=== PATIENT | male | born 1995 | race Caucasian/White ===

== ENCOUNTER 2022-01-20 04:36 | Day surgery (SDC) | payer OTHER ==
[2022-01-17 08:55] VITALS: BMI 32.1
[2022-01-20] MEDS ORDERED: MIDAZOLAM HCL 2 MG/2 ML SINGLE DOSE VIAL ONE (12:00)
[2022-01-20] MEDS ORDERED: PROPOFOL 20 ML ONE ×2 (12:00→12:09)
[2022-01-20] MEDS ORDERED: ePHEDrine SULFATE 50 MG/1 ML AMPULE ONE (12:02)
[2022-01-20] MEDS ORDERED: IOHEXOL 300 MG/ML INFUS..BTL IJ ONE (12:39)
[2022-01-20] MEDS ORDERED: oxyCODONE HCL 5 MG TABLET PO PRN ×2 (13:09)
[2022-01-20] MEDS ORDERED: ONDANSETRON 4 MG/2 ML VIAL IVPUSH PRN (13:09)
[2022-01-20] MEDS ORDERED: LACTATED RINGERS SOLUTION 1,000 ML IV SCH (13:15)
[2022-01-20 15:47] VITALS: BP 131/81; PULSE 78; TEMP 97.4
== END 2022-01-20 15:51 | disposition home or self-care (01) ==
LOC: JASU-SURG 04:36
PROVIDERS: ATTEND Urology
PROC: 0TF68ZZ Fragmentation in Right Ureter, Via Natural or Artificial Opening Endoscopic (ICD-10-PCS; principal; 2022-01-20 11:00)
PROC: 0T768DZ Dilation of Right Ureter with Intraluminal Device, Via Natural or Artificial Opening Endoscopic (ICD-10-PCS; 2022-01-20 11:00)
PROC: BT1DYZZ Fluoroscopy of Right Kidney, Ureter and Bladder using Other Contrast (ICD-10-PCS; 2022-01-20 11:00)
DX: N13.2 Hydronephrosis with renal and ureteral calculous obstruction (principal); N13.1 Hydronephrosis with ureteral stricture, not elsewhere classified
CPT/HCPCS: 76000-TC-FY; 94760

== ENCOUNTER 2022-02-03 04:16 | Day surgery (SDC) | payer OTHER ==
[2022-01-31 16:44] VITALS: BMI 31.3
[2022-02-03] MEDS ORDERED: MIDAZOLAM HCL 2 MG/2 ML SINGLE DOSE VIAL ONE (13:29)
[2022-02-03] MEDS ORDERED: FENTANYL CITRATE/PF 50 MCG/ML VIAL ONE (13:43)
[2022-02-03 15:02] VITALS: BP 127/77; PULSE 90; TEMP 96.8
== END 2022-02-03 15:04 | disposition home or self-care (01) ==
LOC: JASU-SURG 04:16
PROVIDERS: ATTEND Urology
PROC: 0TF3XZZ Fragmentation in Right Kidney Pelvis, External Approach (ICD-10-PCS; principal; 2022-02-03 13:00)
DX: N20.0 Calculus of kidney (principal)